=== PATIENT | male | born 1975 | race Caucasian/White ===

== ENCOUNTER 2016-09-26 15:56 | Emergency (ER) | payer MEDICAID ==
[2016-09-26 16:06] VITALS: BP 127/69; PULSE 68; RESP 20; TEMP 98.3; O2SAT 98
--- NOTE | 2016-09-26 17:43 | C.PDOC ---
History Of Present Illness 40 yr old male presents to the ER with complaints of pain to the right lower posterior tooth which is partially erupted. Patient states he has been using Orajel with no relief. Patient reports of pain to the right posterior jaw. Patient denies fever, throat swelling or neck pain. 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) History/Exam Limitations: no limitations, language barrier (Spanish ) Onset/Duration Of Symptoms: Days Current Symptoms Are (Timing): Still Present Past Medical History Reviewed: Historical Data, Nursing Documentation, Vital Signs Vital Signs: Last Vital Signs Temp 98.3 F 09/26/16 16:02 Pulse 68 09/26/16 16:02 Resp 20 09/26/16 16:02 BP 127/69 09/26/16 16:02 Pulse Ox 98 09/27/16 10:12 Family History: States: No Known Family Hx - Social History Hx Alcohol Use: No Hx Substance Use: No - Immunization History Hx Tetanus Toxoid Vaccination: No Hx Influenza Vaccination: No Hx Pneumococcal Vaccination: No Review Of Systems Constitutional: Negative for: Fever ENT: Positive for: Other ((+) Pain to right lower molar. ). Negative for: Throat Swelling Musculoskeletal: Negative for: Neck Pain Physical Exam - Physical Exam Appears: Non-toxic, No Acute Distress Skin: Warm, Dry, No Rash Head: Atraumatic, Normacephalic Eye(s): bilateral: Normal Inspection, PERRL, EOMI Oral Mucosa: Moist Tongue: Normal Appearing Lips: Normal Appearing Teeth: Other (Poor dentition. Right lower farthest molar with a hole, no tenderness to palpation. tooth behind is partially erupted with swelling and tenderness around the gum. ) Throat: Normal, No Erythema, No Exudate Neck: Normal, Normal ROM, Supple Neurological/Psych: Oriented x3, Normal Speech, Normal Motor ED Course And Treatment O2 Sat by Pulse Oximetry: 98 (RA ) Pulse Ox Interpretation: Normal Medical Decision Making Medical Decision Making: PLAN: * Toradol IM Disposition Counseled Patient/Family Regarding: Diagnosis, Need For Followup, Rx Given - Disposition Disposition: HOME/ ROUTINE Disposition Time: 17:52 Condition: STABLE Additional Instructions: Take Ibuprofen for pain (with food) as directed. Apply cold compress to right side face to help with swelling several times a day. Follow up with a dentist as soon as possible. Prescriptions: Ibuprofen [Motrin] 600 mg PO TID #30 tab Instructions: Toothache (ED) Forms: [facility] (Hebrew), General Discharge Instructions - Clinical Impression Clinical Impression: Dental caries, Tooth eruption disturbance - PA / [employer] / Resident Statement MD/DO has reviewed & agrees with the documentation as recorded. - Scribe Statement The provider has reviewed the documentation as recorded by the Scribe Kimi Rodriguez All medical record entries made by the Riveraibakshat were at my direction and personally dictated by me. I have reviewed the chart and agree that the record accurately reflects my personal performance of the history, physical exam, medical decision making, and the department course for this patient. I have also personally directed, reviewed, and agree with the discharge instructions and disposition.
== END 2016-09-26 18:03 | disposition home or self-care (01) ==
LOC: C.ER 15:56
DX: K02.9 Dental caries, unspecified (principal); K00.6 Disturbances in tooth eruption
CPT/HCPCS: 96372; 99283; J1885